=== PATIENT | female | born 1995 | race Two or more races ===

== ENCOUNTER 2016-05-17 20:25 | Observation (INO) | payer SELFPAY ==
[~2016-05-17] VITALS: Ht 170.2 cm; Wt 83.9 kg
[~2016-05-17 20:25] MED LIST: BENTYL20 MG PO; PHENERGAN25 MG PR; PROMETHAZINE HC25 M1 PO; PROTONIX40 MG PO; XANAX0.5 MG PO; ZOFRAN ODT4 MG PO; ZOFRAN4 MG PO
[2016-05-17 21:17] LABS: ADD MIUA? YES; BILIRUBIN NEGATIVE; BLOOD NEGATIVE; COLOR YELLOW ((YELLOW)); GLUCOSE (STRIP) NEGATIVE; KETONES 40; LEUKOCYTES TRACE; NITRITE NEGATIVE; PH, URINE 8.5 (5-8); PROTEIN (STRIP) 100; SPECIFIC GRAVITY 1.022 (1.000-1.030)
[2016-05-17 21:30] LABS: AMPHETAMINE NEGATIVE (500 ng/mL); BARBITURATES NEGATIVE (200 ng/mL); BENZODIAZEPINES NEGATIVE (150 ng/mL); COCAINE NEGATIVE (150 ng/mL); INTERNAL CONTROLS VALID? YES; METHADONE NEGATIVE (200 ng/mL); METHAMPHETAMINE NEGATIVE (500 ng/mL); OPIATES (MORPHINE) NEGATIVE (100 ng/mL); OXYCODONE NEGATIVE (100 ng/mL); PHENCYCLIDINE NEGATIVE (25 ng/mL); PROPOXYPHENE NEGATIVE (300 ng/mL); THC CANNABINOIDS PRESUMPTIVE POSITIVE (50 ng/mL); TRICYCLIC ANTIDEPRESSANTS NEGATIVE (300 ng/mL)
[2016-05-17 21:31] LABS: ADD MEDTOX COMMENT Y
[2016-05-17 21:45] LABS: MARIJUANA QUANT VALUE 0 NG/ML
[2016-05-17 21:46] LABS: HEMATOCRIT 35.6 % (36.0-46.0); MCH 24.3 PG (29.0-34.0); MCHC 33.1 G/DL (30.0-36.0); MCV 73.4 FL (83-99); MEAN PLAT.VOLUME 11.2 uM^3 (9.5-12.4); PLATELET COUNT 315 K/uL (156-360); RBC DIS.WIDTH-CV 17.2 % (11.8-14.6); RBC DIS.WIDTH-SD 44.7 % (39-53); RED BLOOD COUNT 4.85 M/uL (3.80-5.20); WHITE BLOOD COUNT 11.7 K/uL (4.1-10.2)
[2016-05-17 21:57] LABS: BACTERIA 1+; EPITHELIAL CELLS 1+; MUCUS RARE; RED BLOOD CELLS NONE SEEN /HPF (0-5); UCUL ADDED? NO; WHITE BLOOD CELLS 0-5 /HPF (0-5)
[2016-05-17 21:58] LABS: CASTS NONE SEEN /LPF; CRYSTALS NONE SEEN
[2016-05-17 21:58] LABS: CHLORIDE 106 mEq/L (99-109); POTASSIUM 3.8 mEq/L (3.7-5.4); SODIUM 140 mEq/L (136-147)
[2016-05-17 22:00] LABS: GLUCOSE 149 mg/dL (70-99)
[2016-05-17 22:01] LABS: ANION GAP 11 MEQ/L (2-14)
[2016-05-17 22:02] LABS: TOTAL BILIRUBIN 0.5 mg/dL (0.0-1.0)
[2016-05-17 22:03] LABS: ALKALINE PHOSPHATASE 82 IU/L (3-129)
[2016-05-17 22:04] LABS: GFR ESTIMATE (CALCULATED) > 59 mL/min/
[2016-05-17 22:05] LABS: UREA NITROGEN (BUN) 7 mg/dL (9-23)
[2016-05-17 22:14] LABS: QUANTITATIVE HCG < 4.0 MIU/ML
[2016-05-18] VITALS (8 sets, daily range): BP systolic 131–170; BP diastolic 68–100
[2016-05-18 10:52] LABS: HEMATOCRIT 37.6 % (36.0-46.0); MCH 24.2 PG (29.0-34.0); MCHC 32.4 G/DL (30.0-36.0); MCV 74.6 FL (83-99); MEAN PLAT.VOLUME 10.6 uM^3 (9.5-12.4); PLATELET COUNT 297 K/uL (156-360); RBC DIS.WIDTH-SD 45.7 % (39-53); RED BLOOD COUNT 5.04 M/uL (3.80-5.20); WHITE BLOOD COUNT 12.8 K/uL (4.1-10.2)
[2016-05-18 11:12] LABS: ANION GAP 9 MEQ/L (2-14); CHLORIDE 100 MEQ/L (99-109); POTASSIUM 3.8 MEQ/L (3.7-5.4); SAMPLE HEMOLYSIS CHECK 0; SAMPLE ICTERIC CHECK 0; SAMPLE LIPEMIA CHECK 0; SODIUM 133 MEQ/L (136-147); TOTAL BILIRUBIN 0.3 MG/DL (0.0-1.0)
[2016-05-18 11:18] LABS: ALKALINE PHOSPHATASE 77 IU/L (3-129); GFR ESTIMATE (CALCULATED) > 59 mL/min/; UREA NITROGEN (BUN) 6 mg/dL (9-23)
[2016-05-18 11:21] LABS: GLUCOSE 108 mg/dL (70-99)
[2016-05-18 11:35] LABS: EOSINOPHIL (%) 0.1 % (0-5); HEMATOLOGY COMMENT 1 SMEAR COMPATIBLE; IMMATURE GRANULOCYTE (%) 0.2 % (0.0-0.7); LYMPHOCYTE COUNT 1.2 K/uL (1.0-2.8); MONOCYTE (%) 12.6 % (3-12); MONOCYTE COUNT 1.6 K/uL (0-0.8); NEUTROPHIL (%) 77.8 % (45-76); USER ID LYM
[2016-05-18 20:06] LABS: HEMATOCRIT 37.5 % (36.0-46.0); MCH 24.8 PG (29.0-34.0); MCHC 33.3 G/DL (30.0-36.0); MCV 74.3 FL (83-99); PLATELET COUNT 336 K/uL (156-360); RBC DIS.WIDTH-CV 16.7 % (11.8-14.6); RBC DIS.WIDTH-SD 44.9 % (39-53); RED BLOOD COUNT 5.05 M/uL (3.80-5.20); WHITE BLOOD COUNT 13.8 K/uL (4.1-10.2)
[2016-05-18 20:10] LABS: EOSINOPHIL (%) 0.1 % (0-5); IMMATURE GRANULOCYTE (%) 0.2 % (0.0-0.7); LYMPHOCYTE COUNT 1.6 K/uL (1.0-2.8); MONOCYTE (%) 7.9 % (3-12); MONOCYTE COUNT 1.1 K/uL (0-0.8)
[2016-05-18 20:28] LABS: ALKALINE PHOSPHATASE 78 IU/L (3-129); ANION GAP 11 MEQ/L (2-14); CHLORIDE 101 MEQ/L (99-109); GFR ESTIMATE (CALCULATED) > 59 mL/min/; GLUCOSE 98 mg/dL (70-99); LIPASE 27 U/L (1.0-51.0); POTASSIUM 3.9 MEQ/L (3.7-5.4); SAMPLE HEMOLYSIS CHECK 0; SAMPLE ICTERIC CHECK 0; SAMPLE LIPEMIA CHECK 0; SODIUM 137 MEQ/L (136-147); UREA NITROGEN (BUN) 8 mg/dL (9-23)
[2016-05-18 20:38] LABS: TOTAL BILIRUBIN 0.5 MG/DL (0.0-1.0)
[2016-05-18 22:44] LABS: QUANTITATIVE HCG < 4.0 MIU/ML
[2016-05-19 04:16] VITALS: BP 122/74
[2016-05-19 06:15] LABS: HEMATOCRIT 39.2 % (36.0-46.0); MCH 24.1 PG (29.0-34.0); MCHC 32.4 G/DL (30.0-36.0); MCV 74.4 FL (83-99); MEAN PLAT.VOLUME 11.1 uM^3 (9.5-12.4); PLATELET COUNT 367 K/uL (156-360); RBC DIS.WIDTH-CV 16.9 % (11.8-14.6); RBC DIS.WIDTH-SD 45.7 % (39-53); RED BLOOD COUNT 5.27 M/uL (3.80-5.20)
[2016-05-19 06:26] LABS: EOSINOPHIL (%) 0.4 % (0-5); IMMATURE GRANULOCYTE (%) 0.3 % (0.0-0.7); LYMPHOCYTE COUNT 1.4 K/uL (1.0-2.8); MONOCYTE (%) 10.7 % (3-12); MONOCYTE COUNT 1.2 K/uL (0-0.8); NEUTROPHIL (%) 75.6 % (45-76); NEUTROPHIL COUNT 8.3 K/uL (1.8-6.4)
[2016-05-19 06:42] LABS: ALKALINE PHOSPHATASE 79 IU/L (3-129); ANION GAP 13 MEQ/L (2-14); CHLORIDE 99 MEQ/L (99-109); GFR ESTIMATE (CALCULATED) > 59 mL/min/; GLUCOSE 102 mg/dL (70-99); POTASSIUM 3.7 MEQ/L (3.7-5.4); SAMPLE HEMOLYSIS CHECK 0; SAMPLE ICTERIC CHECK 0; SAMPLE LIPEMIA CHECK 0; SODIUM 140 MEQ/L (136-147); TOTAL BILIRUBIN 0.8 MG/DL (0.0-1.0); UREA NITROGEN (BUN) 12 mg/dL (9-23)
[2016-05-19 09:10] VITALS: BP 109/72
[2016-05-19 11:48] LABS: ADD MIUA? YES; BILIRUBIN NEGATIVE; BLOOD MODERATE; COLOR YELLOW ((YELLOW)); GLUCOSE (STRIP) NEGATIVE; KETONES NEGATIVE; LEUKOCYTES SMALL; NITRITE NEGATIVE; PROTEIN (STRIP) TRACE; SPECIFIC GRAVITY 1.016 (1.000-1.030)
[2016-05-19 13:25] LABS: AMORPHOUS PHOSPHATE CRYSTALS 1+; BACTERIA NONE SEEN; CASTS NONE SEEN /LPF; CRYSTALS PRESENT; EPITHELIAL CELLS RARE; MUCUS NONE SEEN; UCUL ADDED? NO; WHITE BLOOD CELLS 0-5 /HPF (0-5)
[2016-05-19 13:30] VITALS: BP 130/78
[2016-05-19] MEDS ORDERED: ZOFRAN4 MG PO (14:29)
== END 2016-05-19 15:25 | disposition home or self-care (01) ==
LOC: EME → EDBD 20:25 → 5WEST 05-18 00:56 → EDOF 05-18 00:56 → 5WEST 05-18 01:46
PROVIDERS: Hospitalist; Physician Assistant
DX: R10.9 Unspecified abdominal pain (principal); R11.2 Nausea with vomiting, unspecified; R19.7 Diarrhea, unspecified; F45.1 Undifferentiated somatoform disorder; F41.9 Anxiety disorder, unspecified; F12.10 Cannabis abuse, uncomplicated; F39 Unspecified mood [affective] disorder
CPT/HCPCS: 74177; 80053; 81003; 83690; 84702; 84999; 85025; 85025 91; 85027; 99281; 99285; G0378; J1200; J1885; J2270; J2405; J2765; J7030; S0028

== ENCOUNTER 2016-06-21 01:16 | Emergency (ER) | payer SELFPAY ==
[~2016-06-21] VITALS: Ht 172.7 cm; Wt 79.2 kg
[2016-06-21 01:55] LABS: HEMATOCRIT 40.7 % (36.0-46.0); MCH 23.7 PG (29.0-34.0); MCHC 33.2 G/DL (30.0-36.0); MCV 71.4 FL (83-99); MEAN PLAT.VOLUME 10.8 uM^3 (9.5-12.4); PLATELET COUNT 440 K/uL (156-360); RBC DIS.WIDTH-CV 18.1 % (11.8-14.6); RBC DIS.WIDTH-SD 45.4 % (39-53); WHITE BLOOD COUNT 14.5 K/uL (4.1-10.2)
[2016-06-21 02:08] LABS: CHLORIDE 99 mEq/L (99-109); POTASSIUM 3.2 mEq/L (3.7-5.4); SODIUM 139 mEq/L (136-147)
[2016-06-21 02:10] LABS: GLUCOSE 100 mg/dL (70-99)
[2016-06-21 02:11] LABS: ANION GAP 15 MEQ/L (2-14)
[2016-06-21 02:12] LABS: TOTAL BILIRUBIN 0.7 mg/dL (0.0-1.0)
[2016-06-21 02:13] LABS: SERUM ETHYL ALCOHOL < 10 mg/dL
[2016-06-21 02:14] LABS: ALKALINE PHOSPHATASE 101 IU/L (3-129); GFR ESTIMATE (CALCULATED) > 59 mL/min/
[2016-06-21 02:15] LABS: UREA NITROGEN (BUN) 17 mg/dL (9-23)
[2016-06-21 02:17] LABS: LIPASE 21 U/L (1.0-51.0)
[2016-06-21] MEDS ORDERED: BENTYL10 MG PO (02:22)
[2016-06-21] MEDS ORDERED: REGLAN10 MG PO (02:22)
[2016-06-21 02:25] LABS: QUANTITATIVE HCG < 4.0 MIU/ML
[2016-06-21 02:46] VITALS: BP 114/65
== END 2016-06-21 02:48 | disposition home or self-care (01) ==
LOC: EME 01:16
PROVIDERS: Physician Assistant
DX: R11.2 Nausea with vomiting, unspecified (principal); R10.9 Unspecified abdominal pain; F17.200 Nicotine dependence, unspecified, uncomplicated
CPT/HCPCS: 80053; 81003; 83690; 84702; 85027; 99281; 99284; G0480; J1200; J2060; J2270; J7030; Q0177

== ENCOUNTER 2016-07-08 13:09 | Emergency (ER) | payer SELFPAY ==
[~2016-07-08] VITALS: Ht 170.2 cm; Wt 82.6 kg
[~2016-07-08 13:09] MED LIST changes: +BENTYL10 MG PO; +REGLAN10 MG PO
[2016-07-08 13:32] LABS: ADD MIUA? YES; BILIRUBIN NEGATIVE; BLOOD NEGATIVE; COLOR YELLOW ((YELLOW)); GLUCOSE (STRIP) NEGATIVE; KETONES NEGATIVE; LEUKOCYTES MODERATE; NITRITE NEGATIVE; PROTEIN (STRIP) 30; SPECIFIC GRAVITY 1.018 (1.000-1.030); UROBILINOGEN 0.2 MG/DL (0.2-1.0)
[2016-07-08 13:56] LABS: BACTERIA RARE /HPF; EPITHELIAL CELLS 4+ /HPF; MUCUS 1+ /LPF; UCUL ADDED? NO; WHITE BLOOD CELLS 15-20 /HPF (0-5)
[2016-07-08 14:51] LABS: HEMATOCRIT 37.8 % (36.0-46.0); MCHC 31.2 G/DL (30.0-36.0); MEAN PLAT.VOLUME 10.4 uM^3 (9.5-12.4); PLATELET COUNT 427 K/uL (156-360); RBC DIS.WIDTH-CV 17.3 % (11.8-14.6); RBC DIS.WIDTH-SD 48.1 % (39-53); RED BLOOD COUNT 4.91 M/uL (3.80-5.20); WHITE BLOOD COUNT 11.1 K/uL (4.1-10.2)
[2016-07-08 15:01] LABS: CHLORIDE 106 mEq/L (99-109); POTASSIUM 3.4 mEq/L (3.7-5.4); SODIUM 139 mEq/L (136-147)
[2016-07-08 15:04] LABS: GLUCOSE 125 mg/dL (70-99)
[2016-07-08 15:05] LABS: ANION GAP 9 MEQ/L (2-14)
[2016-07-08 15:06] LABS: TOTAL BILIRUBIN 0.3 mg/dL (0.0-1.0)
[2016-07-08 15:07] LABS: ALKALINE PHOSPHATASE 81 IU/L (3-129); GFR ESTIMATE (CALCULATED) > 59 mL/min/
[2016-07-08 15:08] LABS: UREA NITROGEN (BUN) 5 mg/dL (9-23)
[2016-07-08 15:11] LABS: LIPASE 12 U/L (1.0-51.0)
[2016-07-08 15:16] LABS: QUANTITATIVE HCG < 4.0 MIU/ML
[2016-07-08 15:56] LABS: AMPHETAMINE NEGATIVE (500 ng/mL); BARBITURATES NEGATIVE (200 ng/mL); BENZODIAZEPINES NEGATIVE (150 ng/mL); COCAINE NEGATIVE (150 ng/mL); INTERNAL CONTROLS VALID? YES; METHADONE NEGATIVE (200 ng/mL); METHAMPHETAMINE NEGATIVE (500 ng/mL); OPIATES (MORPHINE) NEGATIVE (100 ng/mL); OXYCODONE NEGATIVE (100 ng/mL); PHENCYCLIDINE NEGATIVE (25 ng/mL); PROPOXYPHENE NEGATIVE (300 ng/mL); THC CANNABINOIDS NEGATIVE (50 ng/mL); TRICYCLIC ANTIDEPRESSANTS NEGATIVE (300 ng/mL)
[2016-07-08 16:13] VITALS: BP 151/91
== END 2016-07-08 16:16 | disposition home or self-care (01) ==
LOC: EME 13:09
PROVIDERS: Emergency Medicine
DX: R10.9 Unspecified abdominal pain (principal); R11.2 Nausea with vomiting, unspecified; F17.200 Nicotine dependence, unspecified, uncomplicated
CPT/HCPCS: 80053; 81003; 83690; 84702; 85027; 99281; 99285; J1200; J1630; J2060; J7030

== ENCOUNTER 2016-07-21 11:58 | Emergency (ER) | payer SELFPAY ==
[~2016-07-21] VITALS: Ht 170.2 cm; Wt 74.2 kg
[2016-07-21 12:36] LABS: CHLORIDE 100 mEq/L (99-109); POTASSIUM 3.1 mEq/L (3.7-5.4); SODIUM 140 mEq/L (136-147)
[2016-07-21 12:38] LABS: GLUCOSE 96 mg/dL (70-99)
[2016-07-21 12:39] LABS: ANION GAP 12 MEQ/L (2-14)
[2016-07-21 12:40] LABS: TOTAL BILIRUBIN 0.5 mg/dL (0.0-1.0)
[2016-07-21 12:41] LABS: ALKALINE PHOSPHATASE 81 IU/L (3-129)
[2016-07-21 12:42] LABS: GFR ESTIMATE (CALCULATED) > 59 mL/min/
[2016-07-21 12:43] LABS: UREA NITROGEN (BUN) 13 mg/dL (9-23)
[2016-07-21 12:45] LABS: LIPASE 20 U/L (1.0-51.0)
[2016-07-21 12:57] LABS: HEMATOCRIT 38.8 % (36.0-46.0); MCH 24.1 PG (29.0-34.0); MCHC 32.7 G/DL (30.0-36.0); MCV 73.8 FL (83-99); RBC DIS.WIDTH-CV 16.8 % (11.8-14.6); RBC DIS.WIDTH-SD 44.5 % (39-53); RED BLOOD COUNT 5.26 M/uL (3.80-5.20); WHITE BLOOD COUNT 11.6 K/uL (4.1-10.2)
[2016-07-21 13:23] LABS: QUANTITATIVE HCG < 4.0 MIU/ML
[2016-07-21 14:02] LABS: MEAN PLAT.VOLUME 11.6 uM^3 (9.5-12.4); PLAT.SUFFICIENCY ADEQUATE
[2016-07-21 14:05] LABS: PLATELET COUNT 256 K/uL (156-360)
[2016-07-21 14:22] LABS: ADD MIUA? YES; BILIRUBIN NEGATIVE; BLOOD NEGATIVE; COLOR AMBER ((YELLOW)); GLUCOSE (STRIP) NEGATIVE; KETONES NEGATIVE; LEUKOCYTES TRACE; NITRITE NEGATIVE; PROTEIN (STRIP) 100; SPECIFIC GRAVITY 1.021 (1.000-1.030); UROBILINOGEN 0.2 MG/DL (0.2-1.0)
[2016-07-21 14:44] LABS: BACTERIA RARE /HPF; EPITHELIAL CELLS 1+ /HPF; MUCUS 1+ /LPF; UCUL ADDED? NO
[2016-07-21 14:48] LABS: CASTS NONE SEEN /LPF; CRYSTALS NONE SEEN
[2016-07-21] MEDS ORDERED: ATARAX,VISTARIL25 MG PO (16:06)
[2016-07-21] MEDS ORDERED: PROMETHAZINE HC25 M1 PO (16:06)
[2016-07-21 16:40] VITALS: BP 104/53
== END 2016-07-21 16:43 | disposition home or self-care (01) ==
LOC: EME 11:58
PROVIDERS: Physician Assistant
DX: R11.2 Nausea with vomiting, unspecified (principal); E87.6 Hypokalemia; F17.200 Nicotine dependence, unspecified, uncomplicated
CPT/HCPCS: 80053; 81003; 83690; 84702; 85027; 99281; 99284; J1630; J7030

== ENCOUNTER 2016-07-28 02:55 | Emergency (ER) | payer SELFPAY ==
[~2016-07-28] VITALS: Ht 170.2 cm; Wt 76.7 kg
[~2016-07-28 02:55] MED LIST changes: +ATARAX,VISTARIL25 MG PO
[2016-07-28 03:27] LABS: CHLORIDE 105 mEq/L (99-109); POTASSIUM 3.7 mEq/L (3.7-5.4); SODIUM 139 mEq/L (136-147)
[2016-07-28 03:28] LABS: HEMATOCRIT 38.2 % (36.0-46.0); MCH 24.1 PG (29.0-34.0); MCHC 32.2 G/DL (30.0-36.0); MCV 74.9 FL (83-99); MEAN PLAT.VOLUME 10.2 uM^3 (9.5-12.4); RBC DIS.WIDTH-CV 16.7 % (11.8-14.6); RBC DIS.WIDTH-SD 44.9 % (39-53); WHITE BLOOD COUNT 12.4 K/uL (4.1-10.2)
[2016-07-28 03:29] LABS: GLUCOSE 126 mg/dL (70-99); PLATELET COUNT 542 K/uL (156-360)
[2016-07-28 03:30] LABS: ANION GAP 13 MEQ/L (2-14)
[2016-07-28 03:31] LABS: TOTAL BILIRUBIN 0.5 mg/dL (0.0-1.0)
[2016-07-28 03:32] LABS: ALKALINE PHOSPHATASE 80 IU/L (3-129)
[2016-07-28 03:33] LABS: GFR ESTIMATE (CALCULATED) > 59 mL/min/
[2016-07-28 03:34] LABS: UREA NITROGEN (BUN) 6 mg/dL (9-23)
[2016-07-28 03:36] LABS: LIPASE 25 U/L (1.0-51.0)
[2016-07-28 03:41] LABS: QUANTITATIVE HCG < 4.0 MIU/ML
[2016-07-28 06:27] VITALS: BP 111/63
== END 2016-07-28 07:06 | disposition home or self-care (01) ==
LOC: EME → EDBD 02:55 → EME 02:55
PROVIDERS: Emergency Medicine
DX: R10.9 Unspecified abdominal pain (principal); Z91.19 Patient's noncompliance with other medical treatment and regimen; F17.200 Nicotine dependence, unspecified, uncomplicated
CPT/HCPCS: 74177; 80053; 81003; 83690; 84702; 85027; 99281; 99285; J1630; J2060; J7030